=== PATIENT | female | born 1965 | race Caucasian/White ===

== ENCOUNTER 2020-02-27 09:43 | Emergency (ER) | payer OTHER ==
[2020-02-27 10:00] VITALS: TEMP 98.2; BMI 29.2
--- NOTE | 2020-02-27 10:24 | PDOC ---
History of Present Illness - General Chief Complaint: Blood Pressure Problem Stated Complaint: HIGH BLOOD PRESSURE Time Seen by Provider: 02/27/20 10:02 History Source: Patient Exam Limitations: No Limitations - History of Present Illness Initial Comments: 54F w/o medical history presents to the ED with headache and high blood pressure. She started feeling lightheaded after work yesterday because it was hot in the building. This morning she developed a headache and had her blood pressure checked at work and was sent to the ED. She has no history of headaches. The headache is described as "all over" and constant. Denies vision changes, ataxia, CP, SOB, n/v, numbness, tingling, or weakness. PMH: as in HPI SH: appendectomy Meds: none Allergies: NKDA Tob/Etoh/Rec drugs: none PCP: Unsure ROS GENERAL/CONSTITUTIONAL: No fever or chills. No weakness. HEENT: No change in vision. No ear pain or discharge. No sore throat. CARDIOVASCULAR: No chest pain or shortness of breath RESPIRATORY: No cough, wheezing, or hemoptysis. GASTROINTESTINAL: No nausea, vomiting, diarrhea or constipation. GENITOURINARY: No dysuria, frequency, or change in urination. MUSCULOSKELETAL: No joint or muscle swelling or pain. No neck or back pain. SKIN: No rash NEUROLOGIC: +headache, No vertigo, loss of consciousness, or change in strength/sensation. ENDOCRINE: No increased thirst. No abnormal weight change HEMATOLOGIC/LYMPHATIC: No anemia, easy bleeding, or history of blood clots. ALLERGIC/IMMUNOLOGIC: No hives or skin allergy. PE GENERAL: Awake, alert, and fully oriented, in no acute distress HEAD: No signs of trauma, normocephalic, atraumatic EYES: PERRLA, EOMI, sclera anicteric, conjunctiva clear ENT: Auricles normal inspection, hearing grossly normal, nares patent, oropharynx clear without exudates. Moist mucosa NECK: Normal ROM, supple, no lymphadenopathy, JVD, or masses HEART: RRR, normal S1 and S2, no murmurs, rubs or gallops, peripheral pulses normal and equal bilaterally LUNGS: No distress, speaks full sentences, clear to auscultation bilaterally ABDOMEN: Soft, nontender, normoactive bowel sounds. No guarding, no rebound. No masses EXTREMITIES: Normal inspection, Normal range of motion, no edema. No clubbing or cyanosis. NEUROLOGICAL: CNII-XII grossly intact. Normal speech, normal gait, no focal sensorimotor deficits, [id number] intact SKIN: Warm, Dry, normal turgor, no rashes or lesions noted Assessment and Plan 1. Hypertensive emergency vs. urgency - labetalol, EKG, troponin, CBC, CMP, UA, CXR 2. r/o CVA - noncontrast head CT Celestine Bell, PGY1 Emergency Medicine Past History - Medical History Allergies/Adverse Reactions: Allergies Allergy/AdvReac Type Severity Reaction Status Date / Time No Known Drug Allergies Allergy Verified 02/27/20 09:55 - Psycho-Social/Smoking History Smoking History: Never smoked Information on smoking cessation initiated: No - Substance Abuse Hx (Audit-C & DAST Scrn) How often the patient has a drink containing alcohol: Never Score: In Men: 4 or > Positive; In Women: 3 or > Positive: 0 Screen Result (Pos requires Nsg. Audit-10AR): Negative In the last yr the pt used illegal drug/Rx for NonMed reason: No Score: Yes response is considered Positive: 0 Screen Result (Positive result requires Nsg. DAST-10): Negative *Physical Exam - Vital Signs Last Vital Signs Temp Pulse Resp BP Pulse Ox 98.2 F 60 17 198/102 H 99 02/27/20 09:55 02/27/20 09:55 02/27/20 09:55 02/27/20 09:55 02/27/20 09:55 ED Treatment Course - LABORATORY CBC & Chemistry Diagram: 02/27/20 10:40 02/27/20 10:40 Medical Decision Making - Medical Decision Making 54F w/o medical history presents to the ED with headache and high blood pressure. Initial BP 212/96. No neuro findings on exam. Hypertensive emergency vs urgency is high on differential. R/o intracranial hemorrhage with noncontrast head CT, which was normal. Given 10mg IV Labetalol and improved blood pressure to 155/82. EKG had regular rate, rhythm, axis without ST-T changes. UA unremarkable, no hematuria. CBC and CMP unremarkable. Troponin negative. I spoke with Cardiology, Dr. Farias and recommended that she be started on 5mg amlodipine daily and would see Dr. Mercado in a few weeks. However, it was decided to not start patient on amlodipine since elevated blood pressure is required to be measured on 2 different occasions on different days to diagnose HTN. We recommend that the patient follows up with her PCP today to let them decide whether or not to start antihypertensive. Discharge - Discharge Information Problems reviewed: Yes Clinical Impression/Diagnosis: Hypertension Qualifiers: Hypertension type: unspecified Qualified Code(s): I10 - Essential (primary) hypertension Headache Qualifiers: Headache type: unspecified Headache chronicity pattern: acute headache Intractability: not intractable Qualified Code(s): R51 - Headache Condition: Improved Disposition: HOME - Admission No - Follow up/Referral Referrals: Jayme Georges MD [Primary Care Provider] - - Patient Discharge Instructions Patient Printed Discharge Instructions: DI for High Blood Pressure Additional Instructions: You came into the ED for a headache with elevated blood pressure. Lab work, CT scan, and chest xray were all normal. Come back to the ED if your headache returns with vision changes, if the headache is unbearable, or you have shortness of breath. We recommend that you call your PCP today to let them determine if you should start a blood pressure medication. Follow up with cardiology within a week. - Post Discharge Activity
[2020-02-27] MEDS ORDERED: LABETALOL HCL 5 MG/1 ML (100MG/20 ML VIAL) IVPUSH ONE (10:32)
[2020-02-27] MEDS ORDERED: LABETALOL HCL 5 MG/1 ML (200MG/40ML VIAL) IVPB ONE (10:33)
[2020-02-27 11:01] LABS: BASO % 0.9 % (0-2.0); EOS % 0.9 % (0-4.5); HEMATOCRIT 44.7 % (32.4-45.2); LYMPH % 29.9 % (8-40); MCH 31.2 pg (25.7-33.7); MCHC 33.4 g/dl (32.0-36.0); MEAN CELL VOLUME 93.4 fl (80-96); MEAN PLT VOLUME 8.8 fl (7.5-11.1); MONO % 5.2 % (3.8-10.2); NEUT % 63.1 % (42.8-82.8); PLATELET COUNT 306 K/MM3 (134-434); RBC 4.79 M/mm3 (3.60-5.2); RDW 13.4 % (11.6-15.6); WHITE BLOOD COUNT 6.6 K/mm3 (4.0-10.0)
[2020-02-27 11:03] LABS: URINE APPEARANCE CLEAR; URINE BILIRUBIN NEGATIVE (NEGATIVE); URINE COLOR YELLOW; URINE GLUCOSE (UA) NEGATIVE (NEGATIVE); URINE KETONE NEGATIVE (NEGATIVE); URINE LEUK ESTERASE NEGATIVE (NEGATIVE); URINE NITRITE NEGATIVE (NEGATIVE); URINE PROTEIN NEGATIVE (NEGATIVE); URINE UROBILINOGEN 0.2 mg/dL (0.2-1.0)
--- NOTE | 2020-02-27 11:06 | PDOC ---
Documentation entered by Sujata Varghese SCRIBE, acting as scribe for Adrianne Jordan MD. Adrianne Jordan MD: This documentation has been prepared by the alpeshibeWei Nirvannie, SCRIBE, under my direction and personally reviewed by me in its entirety. I confirm that the documentation accurately reflects all work, treatment, procedures, and medical decision making performed by me. Attending Attestation - Resident Resident Name: Celestine Bell - ED Attending Attestation I have performed the following: I have examined & evaluated the patient, The case was reviewed & discussed with the resident, I agree w/resident's findings & plan, Exceptions are as noted - HPI HPI: 02/27/20 11:17 54YOF with no significant past medical history who presents to the ED with a headache and elevated blood pressure. As per patient, yesterday while at work it was hot and she began to feel lightheaded. Today she noted a diffuse, constant headache and checked her blood pressure at work at which time she noticed it to be elevated, prompting her arrival to the ED. Denies fever, chills, chest pain, SOB, palpitation, weakness, N, V, D, abdominal pain, bladder and bowel problems, focal weakness/paresthesias, leg s welling/pain, rash. No new changes in medications. eats healthy Allergies: None Past Medical History/PSH: Appendectomy Social history: Lives with family. No tobacco, ETOH or drug use. Meds: as documented in EMR Family history: noncontributory PMD: Dr. Georges 02/27/20 13:43 - Physicial Exam PE: 02/27/20 11:05 Agree with the resident's HPI and PE as documented in the electronic medical record. NAD, well appearing, EOMI, PERRL, nl conjunctiva, anicteric; neck supple. lungs clear, RRR, abdomen soft nontender. no rebound, guarding. Back nontender. JERONIMO x4, no focal neuro deficits. No peripheral edema. normal color for ethnicity, WWP. - Medical Decision Making 02/27/20 11:22 Vital Signs Temp Pulse Resp BP Pulse Ox 98.2 F 64 16 152/70 100 02/27/20 09:55 02/27/20 11:11 02/27/20 11:11 02/27/20 11:11 02/27/20 11:11 Vitals reviewed hypertensive, normal heart rate, afebrile Complaining headache, neurologically intact No chest pain no shortness of breath Differential diagnosis includes CVA, hypertension urgency versus emergency, endorgan damage, renal failure, electrolyte/metabolic derangements, anemia, ACS, arrhythmia, infection, pulmonary edema, effusion Chest x-ray interpreted by ED Physician: CXR (2 view): no acute abnormality: no infiltrates, bones appear intact and structures normal alignment, cardiac silhouette within normal limits. no free air under diaphragm, no pneumothorax. 02/27/20 13:43 labs and lytes wnl, trop is neg CTH neg for acute pathology, no cva or bleed no e/o end organ damage normal cr function given tylenol for pain control labetalol x1 dose, BP much improved normal UA, no protein no s/s end organ damage. 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 02/27/20 13:43 02/27/20 13:46 Heart Score/ECG Review #1 ECG reviewed & interpreted by me at: 09:45 General ECG Interpretation: Sinus Rhythm, Normal Rate, Normal Intervals 02/27/20 11:06 EKG normal sinus rhythm 61 bpm, no interval abnormalities, narrow QRS, ST and T wave segments and morphology normal. Discharge - Discharge Information Problems reviewed: Yes Clinical Impression/Diagnosis: Headache Hypertension Qualifiers: Hypertension type: unspecified Qualified Code(s): I10 - Essential (primary) hypertension Condition: Improved Disposition: HOME - Admission No - Follow up/Referral Referrals: Jayme Georges MD [Primary Care Provider] - - Patient Discharge Instructions Patient Printed Discharge Instructions: DI for High Blood Pressure Additional Instructions: You came into the ED for a headache with elevated blood pressure. Lab work, CT scan, and chest xray were all normal. Come back to the ED if your headache returns with vision changes, if the headache is unbearable, or you have shortness of breath. We recommend that you call your PCP today to let them determine if you should start a blood pressure medication. Follow up with cardiology within a week. - Post Discharge Activity
[2020-02-27] MEDS ORDERED: ACETAMINOPHEN 500 MG TABLET (FP) PO ONE (11:17)
[2020-02-27 11:44] LABS: ALBUMIN 3.9 g/dl (3.4-5.0); ALK PHOS 79 U/L (45-117); ANION GAP 6 MMOL/L (8-16); BILIRUBIN,TOTAL 0.6 mg/dL (0.2-1); BLOOD UREA NITROGEN 11.6 mg/dL (7-18); CHLORIDE 104 mmol/L (98-107); CO2 27 mmol/L (21-32); CREATININE 0.8 mg/dL (0.55-1.3); GLUCOSE,RANDOM 103 mg/dL (74-106); POTASSIUM 4.6 mmol/L (3.5-5.1); SGOT/AST 17 U/L (15-37); SODIUM 136 mmol/L (136-145); TOT PROT 7.8 g/dl (6.4-8.2)
[2020-02-27 11:45] LABS: SGPT/ALT 25 U/L (13-61)
[2020-02-27] MEDS ORDERED: ACETAMINOPHEN 325 MG TABLET (FP) ONE (11:48)
[2020-02-27 12:58] VITALS: BP 155/82; PULSE 53
--- NOTE | 2020-02-29 17:17 | EKG ---
Test Reason : Blood Pressure : / mmHG Vent. Rate : 061 BPM Atrial Rate : 061 BPM P-R Int : 152 ms QRS Dur : 074 ms QT Int : 412 ms P-R-T Axes : 060 058 047 degrees QTc Int : 414 ms POOR DATA QUALITY, INTERPRETATION MAY BE ADVERSELY AFFECTED NORMAL SINUS RHYTHM NORMAL ECG WHEN COMPARED WITH ECG OF 23-OCT-2014 09:02, NO SIGNIFICANT CHANGE WAS FOUND Confirmed by MD Kym, Willis ([id number]) on 02/29/2020 5:17:38 PM Referred By: Confirmed By:Willis Mejía MD
== END 2020-02-27 14:11 | disposition home or self-care (01) ==
LOC: JER 09:43
DX: R51 Headache (principal); I10 Essential (primary) hypertension
CPT/HCPCS: 36415; 70450-TC; 71046-TC-FY; 80053; 81003; 82550; 84484; 85025; 93005; 93010; 99285-25

== ENCOUNTER 2020-03-02 04:44 | Emergency (ER) | payer OTHER ==
[2020-03-02 05:00] VITALS: TEMP 98.6; BMI 29.2
--- NOTE | 2020-03-02 05:01 | PDOC ---
Attending Attestation - Resident Resident Name: May Cutler - ED Attending Attestation I have performed the following: I have examined & evaluated the patient, The case was reviewed & discussed with the resident, I agree w/resident's findings & plan - HPI HPI: 03/02/20 05:36 see resident hpi - Physicial Exam PE: 03/02/20 05:36 see resident exam - Medical Decision Making 03/02/20 05:37 54-year-old female seen here 3 days ago for elevated blood pressure with planned outpatient follow-up with primary care which she does have scheduled for later this morning complaining of mild headache and elevated blood pressures at home not currently on medication Will repeat head CT, headache is waxing and waning, there was no thunderclap or sudden onset event reported She does not describe it as the worst headache of her life Based on clinical exam and history lumbar puncture would pose more potential risk than benefit Plan for Percocet and Zofran for pain control if CT negative will DC to follow- up with primary care as scheduled today Discharge - Discharge Information Problems reviewed: Yes Clinical Impression/Diagnosis: Hypertension - Follow up/Referral Referrals: Jayme Georges MD [Primary Care Provider] - - Patient Discharge Instructions - Post Discharge Activity
--- NOTE | 2020-03-02 05:04 | PDOC ---
History of Present Illness - General Chief Complaint: Blood Pressure Problem Stated Complaint: BLOOD PRESSURE PROBLEM Time Seen by Provider: 03/02/20 04:59 - History of Present Illness Initial Comments: Pt is a 54yo F with no PMH who presents with high blood pressure. Pt was seen here on 02/26 with high blood pressure and headache and was discharged home to follow up with PCP for further evaluation of her blood pressure. Pt states that she woke up this morning as per usual and felt a slight pressure at the top of the head which prompted her to check her blood pressure. States that home reading was 170s/100. Reports she feels like she has peripheral edema when her blood pressure is elevated. Denies headache, dizziness, lightheadedness, chest pain, SOB, confusion, change in vision. States that she has had high BP 2 years ago and was started on an antihypertensive medication (?losartan) and decided to stop taking it after 1 month because she felt her blood pressure was controlled. States that she has been sporadically checking her pressure over the last two years and her readings are usually 130-140 systolic. PCP: José Manuel - first appointment with him tomorrow PMH: denies PSH: hysterectomy, appendectomy Meds: denies All: NKDA Social: denies tobacco, etoh, illicit drug use Past History - Medical History Allergies/Adverse Reactions: Allergies Allergy/AdvReac Type Severity Reaction Status Date / Time No Known Drug Allergies Allergy Verified 03/02/20 04:50 - Psycho-Social/Smoking History Smoking History: Never smoked Information on smoking cessation initiated: No - Substance Abuse Hx (Audit-C & DAST Scrn) How often the patient has a drink containing alcohol: Never Score: In Men: 4 or > Positive; In Women: 3 or > Positive: 0 Screen Result (Pos requires Nsg. Audit-10AR): Negative Review of Systems - Review of Systems Comments:: CONSTITUTIONAL:denies fever, chills, diaphoresis, generalized weakness, malaise , loss of appetite HEENT:denies rhinorrhea, nasal congestion, sore throat, ear pain, eye pain, visual changes CARDIOVASCULAR:denies chest pain, syncope, palpitations, lightheadedness RESPIRATORY:denies cough, shortness of breath, dyspnea with exertion, orthopnea, wheezing, hemoptysis GASTROINTESTINAL: denies abdominal pain, nausea, vomiting, diarrhea, constipation, melena, hematochezia GENITOURINARY:denies dysuria, frequency, urgency, hesitancy, hematuria, flank pain, genital pain MUSCULOSKELETAL:denies myalgia, arthralgia, joint swelling, neck pain, back pain HEMATOLOGIC/IMMUNOLOGIC:denies easy bleeding, easy bruising ENDOCRINE: denies unexplained weight gain, unexplained weight loss, heat intolerance, cold intolerance NEUROLOGIC:denies headache, loss of consciousness, focal weakness or paresthesias, dizziness, unsteady gait, mental status changes, bladder or bowel incontinence *Physical Exam - Vital Signs Last Vital Signs Temp Pulse Resp BP Pulse Ox 98.6 F 85 20 173/84 H 100 03/02/20 04:48 03/02/20 04:48 03/02/20 04:48 03/02/20 04:48 03/02/20 04:48 - Physical Exam General: awake, alert, fully oriented, in no acute distress, well developed, well nourished Head: normocephalic, atraumatic Eyes: PERRL, EOMI, anicteric sclera, conjunctiva clear ENT: hearing grossly normal, nares patent, oropharynx clear without exudates. No nasal congestion, Moist mucous membranes Neck: supple, normal ROM, no LAD, JVD or masses Lung: equal breath sounds b/l, CTA b/l, no crackles, wheezes; no distress, speaks full sentences Heart: RRR, normal S1, S2, no murmurs, rubs, gallops Abdomen: soft, non tender, normoactive bowel sounds, no guarding, rebound, masses Extremities: normal ROM, no edema, no erythema or tenderness, DP/PT pulses 2+ and symmetric, no clubbing, cyanosis Neuro: CN2-12 grossly intact, moves all extremities, normal speech, normal gait, sensation intact Medical Decision Making - Medical Decision Making Pt is a 54yo F with no PMH who presents with elevated blood pressure reading at 170/100 from home. Denies any other symptoms. Neuro intact, no findings on PE. Vital Signs Period Temp Pulse Resp BP Sys/Bender Pulse Ox Last 24 Hr 98.6 F 85 20 173/84 100 DDx: asymptomatic hypertension, intracranial bleeding, Plan: head CT, pain control EKG: HR 68bpm, normal sinus rhythm, IL interval 152ms, QRS 78ms, QTc 431ms, no ST changes; rhythm strip demonstrates normal sinus rhythm with rate in 60-70 bpm 03/02/20 06:04 On reassessment, patient has been given percocet and zofran, states that she feels much better (was nervous about the high number beforehand). Patient's BP 154/79. 03/02/20 06:[address]: FINDINGS: The ventricular system is midline and nondilated. The sulcal pattern is normal for the patient's age. There is no bleed, mass, extra-axial fluid collection or mass effect. No skull fracture or skull lesion is identified. The visualized paranasal sinuses and mastoid air cells are clear. IMPRESSION: No evidence of acute pathology Patient stable for discharge. Tolerating PO, pain controlled. Informed of all lab and imaging results. Given follow up instructions and strict return precautions. Patient expressed understanding and agree to plan Reminded patient that she must follow up with Dr. Georges tomorrow. Disposition Discharge to home Discharge - Discharge Information Problems reviewed: Yes Clinical Impression/Diagnosis: Hypertension Qualifiers: Hypertension type: unspecified Qualified Code(s): I10 - Essential (primary) hypertension Condition: Stable - Follow up/Referral Referrals: Jayme Georges MD [Primary Care Provider] - - Patient Discharge Instructions Patient Printed Discharge Instructions: DI for High Blood Pressure, How to Monitor Your Blood Pressure at Home Additional Instructions: You came into the ER for headache. In the ED, you were evaluated with physical exam, head CT, and blood pressure monitoring. Your head CT results were normal. You do not appear to be an acute need for immediate hospitalization You were advised to go to your appointment with Dr. Georges tomorrow. Come back to the ER immediately with any new or worsening concerns, such as headache, chest pain, change in vision, shortness of breath, or persistent vomiting. Thank you for coming to the [facility] ER. We hope you feel better soon! - Post Discharge Activity
[2020-03-02] MEDS ORDERED: ONDANSETRON *ODT* 4 MG TABLET SL ONE (05:22)
[2020-03-02] MEDS ORDERED: ONDANSETRON *ODT* 4 MG TABLET ONE (05:36)
[2020-03-02 06:26] VITALS: BP 152/79; PULSE 72
--- NOTE | 2020-03-02 09:13 | EKG ---
Test Reason : Blood Pressure : / mmHG Vent. Rate : 068 BPM Atrial Rate : 068 BPM P-R Int : 152 ms QRS Dur : 078 ms QT Int : 406 ms P-R-T Axes : 067 048 029 degrees QTc Int : 431 ms NORMAL SINUS RHYTHM NORMAL ECG WHEN COMPARED WITH ECG OF 27-FEB-2020 09:45, NO SIGNIFICANT CHANGE WAS FOUND Confirmed by MD MIRANDA PENG ([id number]) on 03/02/2020 9:13:21 AM Referred By: Confirmed By:BRADY MIRANDA MD
== END 2020-03-02 06:27 | disposition home or self-care (01) ==
LOC: JER 04:44
DX: I10 Essential (primary) hypertension (principal)
CPT/HCPCS: 70450-TC; 93005; 93010; 99285-25; Q0162

== ENCOUNTER 2021-03-28 06:11 | Emergency (ER) | payer OTHER ==
[2021-03-28 06:31] VITALS: TEMP 98.1; BMI 29.2
[2021-03-28 08:21] LABS: BASO % 0.7 % (0-2.0); EOS % 1.4 % (0-4.5); HEMATOCRIT 41.1 % (32.4-45.2); HEMOGLOBIN 14.4 GM/dL (10.7-15.3); LYMPH % 31.4 % (8-40); MCH 31.9 pg (25.7-33.7); MCHC 35.1 g/dl (32.0-36.0); MEAN CELL VOLUME 90.9 fl (80-96); MEAN PLT VOLUME 8.2 fl (7.5-11.1); MONO % 6.5 % (3.8-10.2); PLATELET COUNT 293 10^3/uL (134-434); RBC 4.52 M/mm3 (3.60-5.2); WHITE BLOOD COUNT 6.2 K/mm3 (4.0-10.0)
[2021-03-28 08:32] LABS: CHLORIDE 102 mmol/L (98-107); SODIUM 138 mmol/L (136-145)
[2021-03-28 08:35] LABS: ALBUMIN 3.9 g/dl (3.4-5.0); ANION GAP 7 MMOL/L (8-16); BLOOD UREA NITROGEN 14.5 mg/dL (7-18); CO2 29 mmol/L (21-32); GLUCOSE,RANDOM 103 mg/dL (74-106)
[2021-03-28 08:38] LABS: SGOT/AST 20 U/L (15-37); SGPT/ALT 35 U/L (13-61)
[2021-03-28 08:40] LABS: BILIRUBIN,TOTAL 0.7 mg/dL (0.2-1); TOT PROT 7.8 g/dl (6.4-8.2)
[2021-03-28 08:41] LABS: ALK PHOS 79 U/L (45-117)
[2021-03-28 09:42] VITALS: BP 140/84; PULSE 77
== END 2021-03-28 09:42 | disposition home or self-care (01) ==
LOC: JER 06:11
DX: I10 Essential (primary) hypertension (principal)
CPT/HCPCS: 36415; 80053; 82550; 84484; 85025; 93005; 93010; 99284-25

== ENCOUNTER 2021-03-30 14:38 | Emergency (ER) | payer OTHER ==
[2021-03-30 14:53] VITALS: BP 150/81; PULSE 64; TEMP 98; BMI 29.0
[2021-03-30] MEDS ORDERED: FAMOTIDINE 20 MG TABLET PO ONE (15:27)
[2021-03-30] MEDS ORDERED: FAMOTIDINE 20 MG TABLET ONE (15:31)
[2021-03-30 16:58] LABS: BASO % 0.4 % (0-2.0); EOS % 0.8 % (0-4.5); HEMATOCRIT 39.3 % (32.4-45.2); LYMPH % 24.3 % (8-40); MCH 31.9 pg (25.7-33.7); MCHC 35.6 g/dl (32.0-36.0); MEAN CELL VOLUME 89.8 fl (80-96); MEAN PLT VOLUME 8.5 fl (7.5-11.1); MONO % 6.4 % (3.8-10.2); NEUT % 68.1 % (42.8-82.8); PLATELET COUNT 310 10^3/uL (134-434); RBC 4.37 M/mm3 (3.60-5.2); RDW 13.6 % (11.6-15.6); WHITE BLOOD COUNT 9.2 K/mm3 (4.0-10.0)
[2021-03-30 17:17] LABS: CHLORIDE 98 mmol/L (98-107); SODIUM 135 mmol/L (136-145)
[2021-03-30 17:20] LABS: CALCIUM 9.4 mg/dL (8.5-10.1)
[2021-03-30 17:21] LABS: ALBUMIN 3.8 g/dl (3.4-5.0); ANION GAP 9 MMOL/L (8-16); BLOOD UREA NITROGEN 20.4 mg/dL (7-18); CO2 28 mmol/L (21-32); GLUCOSE,RANDOM 98 mg/dL (74-106)
[2021-03-30 17:24] LABS: CREATININE 0.9 mg/dL (0.55-1.3); SGOT/AST 14 U/L (15-37); SGPT/ALT 30 U/L (13-61)
[2021-03-30 17:26] LABS: BILIRUBIN,TOTAL 0.6 mg/dL (0.2-1); TOT PROT 7.7 g/dl (6.4-8.2)
[2021-03-30 17:27] LABS: ALK PHOS 85 U/L (45-117)
== END 2021-03-30 20:01 | disposition home or self-care (01) ==
LOC: JER 14:38
DX: R07.9 Chest pain, unspecified (principal); K21.9 Gastro-esophageal reflux disease without esophagitis
CPT/HCPCS: 36415; 71045-TC-FY; 80053; 82550; 83735; 84484; 85025; 93005; 93010; 99285-25

== ENCOUNTER 2021-08-15 17:01 | Emergency (ER) | payer OTHER ==
[2021-08-15 17:28] VITALS: BMI 30.2
[2021-08-15] MEDS ORDERED: SILVER NITRATE 75% APPLIC STCK 1 PKT EACH TP ONE (18:18)
[2021-08-15] MEDS ORDERED: ACETAMINOPHEN 325 MG TABLET (FP) PO ONE (18:18)
[2021-08-15] MEDS ORDERED: ACETAMINOPHEN 325 MG TABLET (FP) ONE ×2 (18:20→19:51)
[2021-08-15] MEDS ORDERED: SILVER NITRATE 75% APPLIC STCK 1 PKT EACH ONE ×2 (18:20→19:51)
[2021-08-15 21:47] LABS: BASO % 0.5 % (0-2.0); EOS % 0.7 % (0-4.5); HEMATOCRIT 37.6 % (32.4-45.2); HEMOGLOBIN 12.9 GM/dL (10.7-15.3); LYMPH % 33.9 % (8-40); MCH 30.8 pg (25.7-33.7); MCHC 34.3 g/dl (32.0-36.0); MEAN PLT VOLUME 8.2 fl (7.5-11.1); MONO % 6.6 % (3.8-10.2); NEUT % 58.3 % (42.8-82.8); PLATELET COUNT 337 10^3/uL (134-434); RBC 4.18 M/mm3 (3.60-5.2); RDW 14.1 % (11.6-15.6); WHITE BLOOD COUNT 8.3 K/mm3 (4.0-10.0)
[2021-08-15 21:55] LABS: INR 1.09 (0.83-1.09); PROTHROMBIN TIME (PATIENT) 12.5 SEC (9.7-13.0)
[2021-08-15 21:56] LABS: CHLORIDE 107 mmol/L (98-107); SODIUM 142 mmol/L (136-145)
[2021-08-15 21:58] LABS: ACTIVATED PTT 29.5 SECONDS (25.2-36.5); CALCIUM 9.1 mg/dL (8.5-10.1)
[2021-08-15 21:59] LABS: ALBUMIN 3.6 g/dl (3.4-5.0); ANION GAP 7 MMOL/L (8-16); BLOOD UREA NITROGEN 18.5 mg/dL (7-18); CO2 29 mmol/L (21-32); GLUCOSE,RANDOM 109 mg/dL (74-106)
[2021-08-15 22:02] LABS: CREATININE 0.8 mg/dL (0.55-1.3); SGOT/AST 11 U/L (15-37); SGPT/ALT 33 U/L (13-61)
[2021-08-15 22:03] LABS: BILIRUBIN,TOTAL 0.5 mg/dL (0.2-1); TOT PROT 7.3 g/dl (6.4-8.2)
[2021-08-15 22:05] LABS: ALK PHOS 78 U/L (45-117)
[2021-08-15 22:12] VITALS: BP 163/65; PULSE 72; TEMP 97.5
[2021-08-15] MEDS ORDERED: AMOX TR/POT CLAV 875MG/125MG TABLETS (FP) PO ONE (22:31)
[2021-08-15] MEDS ORDERED: AMOX TR/POT CLAV 875MG/125MG TABLETS (FP) ONE (23:00)
== END 2021-08-15 23:15 | disposition home or self-care (01) ==
LOC: JER 17:01
DX: R04.0 Epistaxis (principal); R07.9 Chest pain, unspecified
CPT/HCPCS: 36415; 71046-TC-FY; 80053; 82550; 84484; 85025; 85610; 85730; 93005; 93010; 99284-25

== ENCOUNTER 2024-01-16 19:05 | Emergency (ER) | payer BC, OTHER ==
[2024-01-16 19:11] VITALS: BP 126/78; PULSE 94; RESP 20; TEMP 98.6; BMI 28.3
[2024-01-16] MEDS ORDERED: ONDANSETRON 4 MG/2 ML VIAL ONE (20:40)
[2024-01-16] MEDS: ONDANSETRON 4 MG/2 ML VIAL IVPUSH ONE (20:57)
[2024-01-16] MEDS: SODIUM CHLORIDE 1,000 ML IV STA (20:57)
[2024-01-16 20:59] LABS: BASO % 0.7 % (0-2.0); EOS % 0.2 % (0-4.5); HEMATOCRIT 44.4 % (32.4-45.2); HEMOGLOBIN 15.3 GM/dL (10.7-15.3); LYMPH % 26.2 % (8-40); MCH 31.3 pg (25.7-33.7); MCHC 34.4 g/dl (32.0-36.0); MEAN CELL VOLUME 90.9 fl (80-96); MONO % 5.2 % (3.8-10.2); NEUT % 67.7 % (42.8-82.8); PLATELET COUNT 345 10^3/uL (134-434); RBC 4.89 M/mm3 (3.60-5.2); RDW 13.8 % (11.6-15.6); WHITE BLOOD COUNT 8.1 K/mm3 (4.0-10.0)
[2024-01-16 21:20] LABS: POTASSIUM 3.8 mmol/L (3.5-5.1)
[2024-01-16 21:22] LABS: CALCIUM 10.1 mg/dL (8.5-10.1)
[2024-01-16 21:23] LABS: ALBUMIN 4.2 g/dl (3.4-5.0); BLOOD UREA NITROGEN 18.5 mg/dL (7-18)
[2024-01-16 21:26] LABS: CREATININE 0.9 mg/dL (0.55-1.3)
[2024-01-16 21:27] LABS: BILIRUBIN,TOTAL 0.8 mg/dL (0.2-1); TOT PROT 8.2 g/dl (6.4-8.2)
== END 2024-01-16 22:18 | disposition home or self-care (01) ==
LOC: JER 19:05
PROC: 3E033GC Introduction of Other Therapeutic Substance into Peripheral Vein, Percutaneous Approach (ICD-10-PCS; principal; 2024-01-16)
PROC: 3E0337Z Introduction of Electrolytic and Water Balance Substance into Peripheral Vein, Percutaneous Approach (ICD-10-PCS; 2024-01-16)
DX: R11.2 Nausea with vomiting, unspecified (principal)
CPT/HCPCS: 36415; 80053; 83690; 85025; 93005; 93010; 99284-25